=== PATIENT | male | born 1970 | race Two or more races ===

== ENCOUNTER 2022-02-16 21:38 | Emergency (ER) | payer SELFPAY ==
[~2022-02-16] VITALS: Ht 175.3 cm; Wt 72.6 kg
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
[2022-02-16 21:49] VITALS: BP 134/74
--- NOTE | 2022-02-16 22:20 | NUR ---
Patient discharged to home in stable condition. Written and verbal after care instructions given. Patient verbalizes understanding of instruction.
== END 2022-02-16 22:21 | disposition home or self-care (01) ==
LOC: ER 21:40
DX: I10 Essential (primary) hypertension (principal); K21.9 Gastro-esophageal reflux disease without esophagitis; Z91.14 Patient's other noncompliance with medication regimen